=== PATIENT | male | born 1965 | race Caucasian/White ===

== ENCOUNTER 2017-10-18 12:22 | Inpatient (IN) | payer BC ==
[~2017-10-18] VITALS: Ht 167.6 cm; Wt 75.1 kg
--- NOTE | ~2017-10-18 | 2DMMODE ---
[facility] [address] [place] [address] 2 D/M-MODE ECHOCARDIOGRAM Name: SRINIVAS BRINK Room #: 357-P ADM IN M.R.#: [id number] Admission: 10/18/17 Attend Phys: Richmond Hilario, Discharge: Date of : 61 Date of Service: 10/18/17 1603 Report #: [id number] THIS REPORT FOR: //name// APPROVED REPORT Study performed: 10/18/2017 15:05:57 EXAM: Comprehensive 2D, Doppler, and color-flow Echocardiogram Patient Location: ER Room #: 10 Status: routine BSA: 1.84 HR: 80 bpm BP: 126/87 mmHg Other Information Study Quality: Adequate Indications CVA/TIA Echo Enhancing Agent Indication: Rule out Shunt Agent(s) / Amount(s) Used: Agitated Saline 7 cc 2D Dimensions RVDd: 27.77 mm LVEF(%): 59.45 (>50%) IVSd: 7.74 (7-11mm) LVOT Diam: 20.94 (18-24mm) LVDd: 47.15 mm PWd: 7.74 (7-11mm) Ascending Ao: 29.01 (22-36mm) LVDs: 32.28 (25-40mm) Aortic Root: 29.59 mm IVC: 17.00 mm Stephens's LVEF: 59.45 % Volumes Left Atrial Volume (Systole) Single Plane 4CH: 66.59 mL Single Plane 2CH: 46.70 mL LA ESV Index: 33.00 mL/m2 Aortic Valve AoV Peak Geoffrey.: 1.72 m/s AO Peak Gr.: 11.86 mmHg LVOT Max P.20 mmHg LVOT Max V: 0.89 m/s CHRISTIANO Vmax: 1.79 cm2 [facility] [place] [address] 2 D/M-MODE ECHOCARDIOGRAM Name: SRINIVAS BRINK Room #: 357-P [facility] IN M.R.#: [id number] Admission: 10/18/17 Attend Phys: Richmond Hilario, Discharge: Date of : 61 Date of Service: 10/18/17 1603 Report #: [id number] Mitral Valve E/A Ratio: 1.5 MV Decel. Time: 129.30 ms MV E Max Geoffrey.: 1.08 m/s MV A Geoffrey.: 0.73 m/s MV PHT: 37.50 ms IVRT: 96.89 ms Pulmonary Valve PV Peak Geoffrey.: 0.75 m/s PV Peak Gr.: 2.25 mmHg Pulmonary Vein P Vein S: 0.35 m/s P Vein A: 0.26 m/s P Vein D: 0.29 m/s P Vein A Dur.: 92.3 msec P Vein S/D Ratio: 1.21 Tricuspid Valve TR Peak Geoffrey.: 2.50 m/s TR Peak Gr.: 25.04 mmHg PA Pressure: 30.00 mmHg Left Ventricle The left ventricle is normal size. There is normal left ventricular wall thickness. The left ventricular systolic function is normal. The left ventricular ejection fraction is within the normal range. LVEF is 60-65%. The left ventricular diastolic function is normal. Right Ventricle The right ventricle is normal size. The right ventricular systolic function is normal. Atria The left atrium size is normal. Interatrial septum is intact without evidence of ASD or PFO. The right atrium size is normal. Aortic Valve The aortic valve is normal in structure. Aortic valve is calcified. No aortic regurgitation is present. There is no aortic valvular stenosis. Mitral Valve The mitral valve is normal in structure. There is no mitral valve regurgitation noted. No evidence of mitral valve stenosis. Tricuspid Valve The tricuspid valve is normal in structure. There is trace tricuspid [facility] [address] [place] [address] 2 D/M-MODE ECHOCARDIOGRAM Name: SRINIVAS BRINK Room #: 357-[facility] IN M.R.#: [id number] Admission: 10/18/17 Attend Phys: Richmond Hilario, Discharge: Date of : 61 Date of Service: 10/18/17 1603 Report #: [id number] regurgitation. Estimated PAP 30 mmHg. There is no pulmonary hypertension. Pulmonic Valve The pulmonary valve is normal in structure. There is no pulmonic valvular regurgitation. Great Vessels The aortic root is normal in size. IVC is normal in size and collapses >50% with inspiration. Pericardium There is no pericardial effusion. <Conclusion> The left ventricle is normal size. LVEF is 60-65%. The aortic valve is normal in structure. Aortic valve is calcified. No aortic regurgitation is present. There is no aortic valvular stenosis. The mitral valve is normal in structure. The tricuspid valve is normal in structure. There is trace tricuspid regurgitation. Estimated PAP 30 mmHg. There is no pulmonary hypertension. The pulmonary valve is normal in structure. Interatrial septum is intact without evidence of ASD or PFO. <ELECTRONICALLY SIGNED> By: Tico Stein MD 10/18/17 1603 1603 160 Tico Stein MD /INF
--- NOTE | ~2017-10-18 | EKG ---
[address] [address] ELECTROCARDIOGRAM REPORT Name: SRINIVAS BRINK Room #: 357-P ADM IN M.R.#: [id number] Admission: 10/18/17 Attend Phys: Richmond Hilario MD Discharge: Date of : 61 Report #: [id number] THIS REPORT FOR: //name// [facility] ED Test Date: 2017-10-18 Test Time: 12:57:32 Pat Name: SRINIVAS BRINK Department: Room: 357 Gender: M Yield Analyst: MANUEL : 1965 Requested By: Karrie Mejía Order Number: [id number] MD: Hero Boyle Measurements Intervals [place] Rate: 88 P: 51 [place]: 165 QRS: 79 QRSD: 114 T: 43 QT: 386 QTc: 467 Interpretive Statements Sinus rhythm Incomplete right bundle branch block Borderline low voltage, extremity leads Consider anterior infarct Compared to ECG 06/30/2016 18:40:19 Incomplete right bundle-branch block now present Myocardial infarct finding now present Electronically Signed On 10-18-2017 22:29:00 [employer] by Hero Boyle [email or web address] <ELECTRONICALLY SIGNED> By: Hero Boyle MD 10/18/17 2229 [id number] Hero Boyle MD /EPI
[~2017-10-18 12:22] MED LIST: ASPIR 8181 MG PO; ASPIRIN EC81 M1 PO; BIOTIN1 MG PO; CELEBREX50 MG PO; DICLOFENAC SODI75 M1 PO; FISH OIL 1,0001 EAC5 PO; FISHOIL; LEVAQUIN 500 M500 M9 PO; LEVOTHROID PO; LEVOTHYROXIN0.112 M1 PO; LEVOTHYROXINE 0.15MG PO; LEVOXYL150 MCG PO; MAGNESIUM100 MG PO; MECLIZINE HCL12.5 MG PO; MOBIC7.5 MG PO; MULTIPLE VITAM1 EAC1 PO; MULTIVITAMINS; NAPROSYN500 MG PO; NORCO 5-325 TA1 EACH PO; NORFLEX100 MG PO; PHENERGAN 25 MG25 M1 PO; PROAIR HFA8.5 GM INH; PROTONIX40 M1 PO; SYNTHROID 0.10.1 M1 PG; SYNTHROID 0.10.1 M1 PO; TYLENOL325 MG PO; VALIUM2 MG PO
[2017-10-18 12:30] VITALS: BP 135/94
[2017-10-18 12:47] LABS: POC CREATININE 1.3 mg/dL (0.6-1.3); POC HEMOGLOBIN 16.7 g/dL (14.0-18.0); POC POTASSIUM 3.8 mmol/L (3.5-5.1)
[2017-10-18 12:48] LABS: ABSOLUTE NEUTROPHILS 1.8 thou/uL (1.4-8.2); BASOPHILS 0.6 % (0.0-2.0); EOSINOPHILS 1.5 % (0.0-3.0); HEMATOCRIT 47.3 % (42.0-52.0); HEMOGLOBIN 16.2 gm/dL (14.0-18.0); LYMPHOCYTES 41.1 % (24.0-44.0); MCH 32.2 pg (26.0-34.0); MCHC 34.3 g/dL (28.0-37.0); MCV 94.1 fL (80.0-100.0); MONOCYTES 6.8 % (1.0-8.0); PLATELET COUNT 232 thou/uL (150-400); RBC 5.03 mil/uL (4.50-6.00); RDW 13.5 % (10.5-14.5); WBC 3.6 thou/uL (4.0-11.0)
[2017-10-18 12:57] LABS: ANION GAP 10 mmol/L (7-16); BUN 14 mg/dL (7-18); CALCIUM 8.7 mg/dL (8.5-10.1); CHLORIDE 104 mmol/L (98-107); CO2 29 mmol/L (21-32); CREATININE 0.8 mg/dL (0.7-1.3); GLUCOSE 97 mg/dL (74-106); POTASSIUM 3.9 mmol/L (3.5-5.1); SODIUM 143 mmol/L (136-145)
[2017-10-18 13:02] LABS: APTT 32.2 Seconds (24.5-32.8); PROTIME 9.4 Seconds (9.3-11.4)
[2017-10-18 13:05] LABS: TROPONIN-I < 0.04 ng/mL (<0.06)
[2017-10-18] MEDS ORDERED: MUCINEX600 MG PO (13:09)
[2017-10-18] MEDS ORDERED: CLARITIN10 MG PO (13:10)
[2017-10-18 13:38] LABS: D-DIMER 0.46 ug/mLFEU (0.19-0.50)
[2017-10-18 15:07] LABS: CHOLESTEROL 251 mg/dL (<200); HDL CHOLESTEROL 113 mg/dL (>40); LDL CHOLESTEROL 114 mg/dL (<100); TC:HDL 2.2 Ratio (Not establshd); TRIGLYCERIDE 124 mg/dL (<150); VLDL 25 mg/dL (<40)
[2017-10-18 15:25] VITALS: BP 111/79
[2017-10-18 15:56] VITALS: BP 114/80
[2017-10-18] MEDS ORDERED: AUGMENTIN 875-1 EACH PO (16:42)
[2017-10-18 16:43] VITALS: BP 116/83
[2017-10-18 18:51] VITALS: BP 116/84
[2017-10-19 03:55] VITALS: BP 143/97
[2017-10-19] MEDS ORDERED: ANTIVERT25 MG PO (07:07)
[2017-10-19 07:46] VITALS: BP 136/95
[2017-10-19 11:48] VITALS: BP 144/98
[2017-10-19] MEDS ORDERED: PLAVIX 75 MG TA75 M1 PO (14:30)
[2017-10-19] MEDS ORDERED: LIPITOR 20 MG T20 M1 PO (14:39)
[2017-10-19 14:41] VITALS: BP 144/98
== END 2017-10-19 16:01 | disposition home or self-care (01) | DRG 69 ==
LOC: ER 12:22 → EROBS 14:09 → 3W 14:09
PROVIDERS: Emergency Medicine; Psychiatry & Neurology Neurology
DX: G45.9 Transient cerebral ischemic attack, unspecified (principal); M06.9 Rheumatoid arthritis, unspecified; E89.0 Postprocedural hypothyroidism; F43.10 Post-traumatic stress disorder, unspecified; H81.09 Meniere's disease, unspecified ear; H91.90 Unspecified hearing loss, unspecified ear; I10 Essential (primary) hypertension; Z90.49 Acquired absence of other specified parts of digestive tract; Z87.81 Personal history of (healed) traumatic fracture; Z88.6 Allergy status to analgesic agent
CPT/HCPCS: 10879

== ENCOUNTER 2018-03-13 07:29 | Emergency (ER) | payer BC ==
[~2018-03-13] VITALS: Ht 167.6 cm; Wt 72.6 kg
--- NOTE | ~2018-03-13 | EKG ---
[place] [address] [facility] [place] [address] ELECTROCARDIOGRAM REPORT Name: SRINIVAS BRINK Room #: PRE M.R.#: [id number] Admission: Attend Phys: Discharge: Date of : 61 Report #: [id number] THIS REPORT FOR: //name// [facility] ED Test Date: 2018-03-13 Test Time: 08:18:20 Pat Name: SRINIVAS BRINK Department: Room: Gender: M Medical Receptionist: deidre : 1965 Requested By: Lauren Stein Order Number: [id number] MD: Avtar Eldridge Measurements Intervals [place] Rate: 73 P: 57 [place]: 172 QRS: 77 QRSD: 106 T: 55 QT: 390 QTc: 430 Interpretive Statements Sinus rhythm Poor R wave progression Compared to ECG 10/18/2017 12:57:32 No significant change was found Electronically Signed On 03-13-2018 8:41:30 CDT by Avtar Eldridge [email or web address] <ELECTRONICALLY SIGNED> By: Avtar Eldridge MD, [facility] 03/13/18 0841 [id number] 0818 Avtar Eldridge MD, [facility] /EPI
[~2018-03-13 07:29] MED LIST changes: +ANTIVERT25 MG PO; +AUGMENTIN 875-1 EACH PO; +CLARITIN10 MG PO; +LIPITOR 20 MG T20 M1 PO; +MUCINEX600 MG PO; +PLAVIX 75 MG TA75 M1 PO
[2018-03-13 07:52] LABS: ABSOLUTE NEUTROPHILS 1.9 thou/uL (1.4-8.2); BASOPHILS 0.9 % (0.0-2.0); EOSINOPHILS 2.6 % (0.0-3.0); HEMATOCRIT 45.6 % (42.0-52.0); LYMPHOCYTES 29.7 % (24.0-44.0); MCH 32.3 pg (26.0-34.0); MCHC 33.3 g/dL (28.0-37.0); MONOCYTES 11.9 % (1.0-8.0); POLYS 54.9 % (36.0-66.0); RDW 13.5 % (10.5-14.5); WBC 3.4 thou/uL (4.0-11.0)
[2018-03-13 07:54] LABS: HEMOGLOBIN 15.2 gm/dL (14.0-18.0); PLATELET COUNT 192 thou/uL (150-400)
[2018-03-13 08:01] LABS: CALCIUM 8.6 mg/dL (8.5-10.1); CREATININE 0.6 mg/dL (0.7-1.3); POTASSIUM 3.6 mmol/L (3.5-5.1)
[2018-03-13] MEDS ORDERED: SYNTHROID125 MC1 PO (08:35)
[2018-03-13] MEDS ORDERED: VOLTAREN GEL 1100 G2 TOP (08:35)
[2018-03-13 08:55] LABS: ALBUMIN 3.7 g/dL (3.4-5.0); DIRECT BILIRUBIN < 0.1 mg/dL (<0.1-0.3); SGOT 55 U/L (15-37); SGPT 45 U/L (30-65); TOTAL BILIRUBIN 0.2 mg/dL (<0.1-1.0); TOTAL PROTEIN 6.9 g/dL (6.4-8.2)
[2018-03-13 09:01] LABS: AMP/METHAMP Negative (Negative); BARBITURATES Negative (Negative); BENZODIAZEPINES Negative (Negative); COCAINE Negative (Negative); METHADONE Negative (Negative); OPIATES Negative (Negative); PCP Negative (Negative)
== END 2018-03-13 09:48 | disposition home or self-care (01) ==
LOC: ER 07:29
PROVIDERS: Emergency Medicine
DX: F10.129 Alcohol abuse with intoxication, unspecified (principal); M19.90 Unspecified osteoarthritis, unspecified site; G47.30 Sleep apnea, unspecified; Z90.49 Acquired absence of other specified parts of digestive tract; E89.0 Postprocedural hypothyroidism; Z87.891 Personal history of nicotine dependence

== ENCOUNTER 2018-10-14 14:40 | Emergency (ER) | payer BC ==
[~2018-10-14] VITALS: Ht 167.6 cm; Wt 77.1 kg
[~2018-10-14 14:40] MED LIST changes: +SYNTHROID125 MC1 PO; +VOLTAREN GEL 1100 G2 TOP
[2018-10-14 15:14] LABS: ANION GAP 7 mmol/L (7-16); BUN 16 mg/dL (7-18); CALCIUM 8.9 mg/dL (8.5-10.1); CHLORIDE 105 mmol/L (98-107); CO2 32 mmol/L (21-32); CREATININE 0.8 mg/dL (0.7-1.3); GLUCOSE 100 mg/dL (74-106); HEMOGLOBIN 16.4 gm/dL (14.0-18.0); MCH 31.9 pg (26.0-34.0); MCHC 33.4 g/dL (28.0-37.0); MCV 95.4 fL (80.0-100.0); POTASSIUM 4.2 mmol/L (3.5-5.1); RBC 5.14 mil/uL (4.50-6.00); SODIUM 144 mmol/L (136-145); WBC 5.4 thou/uL (4.0-11.0)
[2018-10-14 15:22] LABS: APTT 29.2 Seconds (24.5-32.8); PROTIME 9.6 Seconds (9.3-11.4)
[2018-10-14 15:23] LABS: TROPONIN-I <0.06 ng/mL (<0.06)
--- NOTE | 2018-10-14 16:50 | EKG ---
[facility] [place] [address] ELECTROCARDIOGRAM REPORT Name: SRINIVAS BRINK Room #: [facility] [id number] Admission: 10/14/18 Attend Phys: Discharge: Date of : 61 Report #: [id number] THIS REPORT FOR: //name// [facility] ED Test Date: 2018-10-14 Test Time: 15:25:02 Pat Name: SRINIVAS BRINK Department: Room: Gender: Oracle Etl Developer: MAGALI : 1965 Requested By: Sundar Hicks Order Number: [id number] MD: Avtar Eldridge Measurements Intervals [place] Rate: 86 P: 53 [place]: 170 QRS: 98 QRSD: 108 T: 58 QT: 371 QTc: 444 Interpretive Statements Sinus rhythm RSR' in V1 or V2, right VCD Poor R wave progression Compared to ECG 03/13/2018 08:18:20 No significant change was found Electronically Signed On 10-14-2018 16:50:02 BOXING INSTRUCTOR by Avtar Eldridge [email or web address] <ELECTRONICALLY SIGNED> By: Avtar Eldridge MD, [facility] 10/14/18 1650 152 Avtar Eldridge MD, [facility] /EPI
[2018-10-14 19:12] VITALS: BP 133/70
== END 2018-10-14 19:13 | disposition home or self-care (01) ==
LOC: ER 14:40
PROVIDERS: Emergency Medicine
DX: R51 Headache (principal); R07.89 Other chest pain; E03.9 Hypothyroidism, unspecified; G47.30 Sleep apnea, unspecified; M06.9 Rheumatoid arthritis, unspecified; Z90.89 Acquired absence of other organs; Z86.73 Personal history of transient ischemic attack (TIA), and cerebral infarction without residual deficits; Z87.891 Personal history of nicotine dependence; Z88.6 Allergy status to analgesic agent; Z90.49 Acquired absence of other specified parts of digestive tract

== ENCOUNTER 2020-05-01 22:12 | Inpatient (IN) | payer BC ==
[~2020-05-01] VITALS: Ht 167.6 cm; Wt 87.3 kg
--- NOTE | ~2020-05-01 | EEG ---
[facility] [place] [address] ELECTROENCEPHALOGRAM Name: SRINIVAS BRINK Room #: 452-P ADM IN M.R.#: [id number] Admission: 05/02/20 Attend Phys: Regina Cid MD Discharge: Date of : 61 Report #: [id number] THIS REPORT FOR: //name// CC: FAM physician/PCP Regina Cid DATE OF SERVICE: 05/02/2020 This patient is being evaluated for seizure. EEG was done by placing the electrode by standard 10-20 system of electrode placement. Both referential and sequential montages were used for recording. Background activity in this patient's EEG is about 8 Hz and 30 microvolt. The patient went to sleep that is associated with bilateral slowing. Photic stimulation is unremarkable. Throughout the record, no active epileptiform activity was noticed. IMPRESSION: This patient's EEG does not show any active epileptiform activity. Thank you very much for this referral. By: 1736 [id number] Maciel Tsang MD /nt
--- NOTE | ~2020-05-01 | HC ---
[facility] [place] [address] CONSULTATION Name: SRINIVAS BRINK Room #: 452-P ADM IN M.R.#: [id number] Admission: 05/02/20 Attend Phys: Regina Cid MD Discharge: Date of : 61 Report #: [id number] THIS REPORT FOR: cc: ROBINA - Yaneli family physician/PCP ROBINA - No family physician/PCP Maciel Tsang MD ~ CC: [facility] physician/PCP Regina Cid DATE OF SERVICE: 05/02/2020 HISTORY OF PRESENT ILLNESS: This is a 54-year-old male patient who was seen by me for seizure. The patient indicates that he was walking, he felt dizzy, which is not unusual because he has been diagnosed with Meniere's disease. Then, he tried to lean towards the wall. His came in and she was able to help him to the ground. He still had shakiness. He said he bit his tongue. He was confused after that, but his confusion has resolved. He did have diarrhea associated with it. REVIEW OF SYSTEMS: Indicate that he feels dizzy intermittently. He has been diagnosed with Meniere's disease. He has been told to cut down his sodium. He does it some time, but some time he takes extra sodium. He had diarrhea at this time. He has a history of hypothyroidism and his TSH is still low. He has something to do with his carotid sinus. He has a history of sleep apnea, carpal tunnel syndrome, rheumatoid arthritis, exposure to some chemicals, tinnitus. He also had some fractures in the spine. He has MRI dating back to 2013. He does not know why they were done. He was seen by Dr. Isabel who indicated that the patient probably had TIA. In 2013, he also had MRA of the head and neck and they were unremarkable. This was his relevant 14-point review of system. PAST MEDICAL HISTORY: Positive for Meniere's disease. He says he never had a seizure before. FAMILY HISTORY: Unremarkable. SOCIAL HISTORY: He tells me he does not drink any alcohol, but records indicate that he has told he has. In 2018, he was started on Plavix by Dr. Isabel and he is still on Plavix. PHYSICAL EXAMINATION: GENERAL: Indicates he is alert, responsive, oriented. It takes him a little while to tell me the date and he did not get it exactly right, but he knows what hospital he is in. He knows who the president is. NEUROLOGIC: Cranial nerve examination 2-12 looks unremarkable. Neuromuscular examination as checked for strength, sensation, reflexes and tone looks unremarkable. He does not appear to have cerebellar sign. I could not look at [facility] [address] [place] [address] CONSULTATION Name: SRINIVAS BRINK Room #: 452-P [facility] IN M.R.#: [id number] Admission: 05/02/20 Attend Phys: Regina Cid MD Discharge: Date of : 61 Report #: [id number] the patient's fundus. There is no meningeal sign. There is no carotid bruit. He is a pretty well-developed individual. He does not have any dysmorphic features of eyes, ears and face. VITAL SIGNS: His blood pressure is 143/96, respiration is 17, pulse is 82, temperature is 98.9. His pulses are nicely palpable. SKIN: He has no edema, cyanosis or jaundice. CARDIAC: His cardiac examination is unremarkable. He does not have any respiratory difficulty. His previous records were reviewed and CT was reviewed. IMPRESSION: Clinically, it does look like he has a seizure. He has multiple abnormalities, I am not sure how is it related to that. He tells me he does not drink alcohol, but his platelet count is low and his MCV is high, but it looks like he has given a different history to other people. 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 PLAN: I discussed the situation with him and I told him that we will repeat an MRI of the brain and this time we will do it with and without contrast. I discussed the potential side effect of contrast with the patient. This includes irreversible dermatological side effects. His BUN and creatinine is normal and he wants to proceed it and we will do that. I will get an EEG done. He has so many episodes over a period of time that I might be inclined to give him a trial with Lamictal. Thank you very much for this referral. We will follow the patient along with you. I discussed all of it with the patient and advantages and disadvantages and he wants to follow this plan. By: [id number] Maciel Tsang MD /nt
[2020-05-01 22:12] VITALS: BP 155/106
[2020-05-01 23:04] LABS: ABSOLUTE NEUTROPHILS 2.8 thou/uL (1.4-8.2); BASOPHILS 0.6 % (0.0-2.0); EOSINOPHILS 0.6 % (0.0-3.0); HEMATOCRIT 44.4 % (42.0-52.0); HEMOGLOBIN 14.8 gm/dL (14.0-18.0); LYMPHOCYTES 20.7 % (24.0-44.0); MCH 33.8 pg (26.0-34.0); MCHC 33.4 g/dL (28.0-37.0); MCV 101.3 fL (80.0-100.0); MONOCYTES 11.3 % (1.0-8.0); PLATELET COUNT 135 thou/uL (150-400); POLYS 66.8 % (36.0-66.0); RBC 4.38 mil/uL (4.50-6.00); RDW 14.4 % (10.5-14.5); WBC 4.2 thou/uL (4.0-11.0)
[2020-05-01 23:12] LABS: CALCIUM 8.6 mg/dL (8.5-10.1); MAGNESIUM 1.6 mg/dL (1.8-2.4); POTASSIUM 3.1 mmol/L (3.5-5.1)
[2020-05-01 23:45] LABS: URINE BILIRUBIN NEGATIVE (Negative); URINE BLOOD 3+ (Negative); URINE CLARITY CLEAR; URINE COLOR YELLOW; URINE GLUCOSE-RANDOM* NEGATIVE (Negative); URINE KETONES 1+ (Negative); URINE LEUKOCYTES-REFLEX NEGATIVE (Negative); URINE NITRITE-REFLEX NEGATIVE (Negative); URINE PROTEIN (DIPSTICK) 3+ (Negative); URINE SPECIFIC GRAVITY >= 1.030 (1.005-1.035); URINE UROBILINOGEN 0.2 E.U./dl (0.2-1.0)
[2020-05-01 23:54] LABS: AMP/METHAMP Negative (Negative); BARBITURATES Negative (Negative); BENZODIAZEPINES Negative (Negative); COCAINE Negative (Negative); METHADONE Negative (Negative); OPIATES Negative (Negative); PCP Negative (Negative)
[2020-05-02 00:20] LABS: BACTERIA-REFLEX None Seen /HPF (None Seen); CRYSTALS None Seen /LPF (None Seen); HYALINE CASTS 0-3 Few /LPF (None Seen); MUCUS 0-3 Light strn/LPF (None Seen); SQUAMOUS 0-3 Few /LPF (0-3); URINE RBC 3-10 Few /HPF (0-2); URINE WBC-REFLEX 0-5 Rare /HPF (0-5)
[2020-05-02 01:36] VITALS: BP 139/92
[2020-05-02 01:42] VITALS: BP 137/91
[2020-05-02 02:00] VITALS: BP 126/86
--- NOTE | 2020-05-02 03:20 | NUR ---
PATIENT ARRIVED ALERT AND ORIENTED X4 WITH SOME STRUGGLE AT TIMES FOR WORDS AND CONTEXT. DENIES PAIN EXCEPT AT IV SITE. STATED THAT AT HOME HE USES A CANE HE SUFFERS FROM VERTIGO. NO SKIN BREAKDOWN. CAME FROM ED VIA CART WITH RN. BED RAILS PADDED DUE TO SEIZURE PRECAUTIONS. PATIENT ORIENTED TO ROOM. STATED HE HAS HAD DIARRHEA SEVERAL TIMES YESTERDAY, HOWEVER, NONE AT TIME OF NOTE. DENIES N/V AT THIS TIME. IVF INFUSING. WILL MONITOR.
[2020-05-02 07:53] VITALS: BP 143/96
--- NOTE | 2020-05-02 08:06 | EKG ---
[facility] [place] [address] ELECTROCARDIOGRAM REPORT Name: SRINIVAS BRINK Room #: 452- ADM IN M.R.#: [id number] Admission: 05/02/20 Attend Phys: Regina Cid MD Discharge: Date of : 61 Report #: [id number] THIS REPORT FOR: cc: ROBINA - Yaneli family physician/PCP ROBINA - Yaneli family physician/PCP Avtar Eldridge MD [facility] THIS REPORT FOR: //name// [facility] ED Test Date: 2020-05-01 Test Time: 22:23:52 Pat Name: SRINIVAS BRINK Department: Room: [facility] Gender: M Aircraft Metalsmith: lala : 1965 Requested By: Jonathan Gutiérrez Order Number: [id number] MD: Avtar Eldridge Measurements Intervals [place] Rate: 104 P: 50 [place]: 173 QRS: 108 QRSD: 106 T: 21 QT: 373 QTc: 491 Interpretive Statements Sinus tachycardia RSR' in V1 or V2, right VCD Borderline prolonged QT interval Compared to ECG 10/14/2018 15:25:02 QT interval has lengthened Electronically Signed On 05-02-2020 8:06:38 CDT by Avtar Eldridge [email or web address] <ELECTRONICALLY SIGNED> By: Avtar Eldridge MD, [facility] 05/02/2006 22 22 Avtar Eldridge MD, [facility] /EPI
[2020-05-02 15:04] VITALS: BP 127/88
--- NOTE | 2020-05-02 15:26 | NUR ---
Received awake on bed. Due medications given as prescribed, able to swallow meds w/o difficulty. On room air. Vital signs stable. A+Ox4; on seizure precautions. On heart healthy diet- tolerating well; no nausea, no vomiting and no abdominal pain noted. Continent of bowel and bladder, able to go to the toilet with minimum assist using walker and gait belt. With NS at 100cc/hr, infusing well at L FA. No complaints of pain made during assessment. Assisted in ADLs. Pt seen and examined by Dr Tsang, with orders for MRI- checklist accomplished and faxed; requested for medical records from [facility] faxed request for information form, a/w for [facility] to fax back documents; able to go down for MRI via wheelchair; transferred back to room safely. To continue monitoring patient.
--- NOTE | 2020-05-02 16:24 | NUR ---
PT ADMITTED RELATED TO NEW ONSET SIZURE, HYPOKALEMIA, HYPOMAGNESEMIA. CM REVIEWED CHART AND SPOKE WITH CARE TEAM. CARE TEAM INDICATED NEURO WAS CONSULTED PT TO HAVE MRI AND EEG THIS DAY. CM NOTIFIED BY UR NURSE THAT PT'S INSURANCE IS OON WITH OUR FACILITY. GAVE AUTH THROUGH TOMORROW IF CONTINUED HOSPITALIZATION NEEDED WE NEED TO ATTEMPT TO TRANSFER PT. NURSE ASSISTED CM IN SPEAKING WITH PT OVER THE PHONE THIS AFTERNOON. HE INDICATED HE LIVES IN A RANCH STYLE HOUSE WITH HIS WITH 5 STEPS TO ENTER AND NONE HE USES INSIDE. PT INDICATED HE HAS A FWW AND LOTS OF CANES TO ASSIST WITH MOBILITY. PT INDICATED HE COULDN'T RECALL HIS PCP. HE INICATED NO H HX. CM NOTIFIED HIM OF POSSIBLITY OF TRANSFER. CM SPOKE WITH PT'S JAY AND SHE CONFIRMED THE ABOVE. SHE IS ALSO AWAE OF POSSIBLE NEED FOR FOR TRANSFER. CM TO FOLLOW INDICATED WITH DC PLANNING.
[2020-05-02 19:18] VITALS: BP 141/94
[2020-05-03] VITALS (8 sets, daily range): BP systolic 106–154; BP diastolic 65–92
--- NOTE | 2020-05-03 00:20 | NUR ---
ASSUMED CARE OF PT AT 1900. PT IS A/O X4. UP WITH ASSISTANCE TO THE BR WITH A WALKER AND GAITBELT. DENIES ANY C/O PAIN OR DISCOMFORT. VSS. FALL PRECAUTIONS ARE IN PLACE, CALL LIGHT IS WITHIN REACH. SR ON THE MONITOR. ST WITH AMBULATING OR ANY EXERTION. WILL CONTINUE TO MONITOR.
[2020-05-03 05:58] LABS: HEMATOCRIT 41.1 % (42.0-52.0); HEMOGLOBIN 13.9 gm/dL (14.0-18.0); MCH 34.1 pg (26.0-34.0); MCHC 33.9 g/dL (28.0-37.0); MCV 100.7 fL (80.0-100.0); RBC 4.08 mil/uL (4.50-6.00); RDW 14.1 % (10.5-14.5); WBC 5.8 thou/uL (4.0-11.0)
[2020-05-03 06:47] LABS: CALCIUM 7.7 mg/dL (8.5-10.1); CREATININE 0.8 mg/dL (0.7-1.3); MAGNESIUM 1.6 mg/dL (1.8-2.4); POTASSIUM 3.9 mmol/L (3.5-5.1)
--- NOTE | 2020-05-03 07:55 | EKG ---
[facility] [place] [address] ELECTROCARDIOGRAM REPORT Name: SRINIVAS BRINK Room #: 452- ADM IN M.R.#: [id number] Admission: 05/02/20 Attend Phys: Regina Cid MD Discharge: Date of : 61 Report #: [id number] THIS REPORT FOR: cc: ROBINA - Yaneli family physician/PCP ROBINA - Yaneli family physician/PCP Avtar Eldridge MD [facility] THIS REPORT FOR: //name// [facility] Test Date: 2020-05-03 Test Time: 07:30:27 Pat Name: SRINIVAS BRINK Department: Room: 452 Gender: M Jacquard Plate Maker: MURRAY : 1965 Requested By: Amando Keating Order Number: [id number] MD: Avtar Eldridge Measurements Intervals [place] Rate: 126 P: 49 [place]: 86 QRS: 107 QRSD: 91 T: 12 QT: 319 QTc: 462 Interpretive Statements Sinus tachycardia Anterior infarct, old Baseline wander in lead(s) V2 Compared to ECG 05/01/2020 22:23:52 Anterior Q waves are now present Electronically Signed On 05-03-2020 7:55:21 CDT by Avtar Eldridge [email or web address] <ELECTRONICALLY SIGNED> By: Avtar Eldridge MD, [facility] 05/03/20 0755 9 9 Avtar Eldridge MD, [facility] /EPI
--- NOTE | 2020-05-03 10:13 | NUR ---
Received patient on bed this AM, combative, hallucinating, and having withdrawal symptoms; as per shift mechanic nurse- pt currently on [facility] protocol, one time lorazepam already given but pt remains agitated and combative, tried to address to housekeeper/custodian/laundry worker and night OLD COIN DEALER for further orders but said to wait for 7:30am to inform the hospitalist and obtain for other orders. Pt trying to hit the staff, pulled out his IV. Tried to call housekeeper/custodian/laundry worker to inform re: Tachycardic episodes as well as high as 150-160's; order for lorazepam and 12LEKG obtained. Re-sited IV at L foot- Lorazepam given as prescribed. Dr Keating pagesally and informed re: patient. supervisor testing Shelley called unit: to transfer to RM 207 now while Ativan was just recently given. Pt transferred out of the unit via bed with his personal belongings.
--- NOTE | 2020-05-03 19:41 | NUR ---
ASSUMED CARE AT CHANGE OF SHIFT TRANSFER FROM [facility] WITH A CIWA >20. DR HERNÁNDEZ NOTIFIED WITH ORDERS FOR BILATERAL RESTRAINTS AND BAUTISTA PLACMENT. DR HERNÁNDEZ SPOKE WITH . PATIENT ALERT, AGITATED, RESTLESS, PULLING AT ANYTHING IN REACH, LORAZAPAM GIVEN HOURLY, NOTIFIED DR HERNÁNDEZ THAT PATIENT REMAINS WITH CIWA >15. PT TO TRANSFER TO ICU. FALL PRECAUTIONS C HOURLY ROUNDING, CIWA, AND BILATERAL RESTRAINT CHECKS.
[2020-05-04] VITALS (24 sets, daily range): BP systolic 90–124; BP diastolic 52–84
--- NOTE | 2020-05-04 03:05 | NUR ---
PT TRANSFERED FROM TO ICU ROOM 244 AT 2115 DUE TO ETOH WITHDRAWAL. PT WAS VERY CONFUSED, AGITATED, AND COMBATIVE AFTER TRANSFER. CIWA SCORE >25. LORAZEPAM GIVEN. PT APPEARED TO BE HAVING HALLUCINATIONS HE WOULD TRY TO PUNCH HIS FISTS IN THE AIR AND MOUTH WORDS. BILATERAL WRIST RESTRAINTS IN PLACE. PRECEDEX GTT STARTED. PT THEN BECAME LESS AGITATED AND RESTLESSNES IMPROVED. 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 AROUND MIDNIGHT, O2 SATS DROPPED BELOW 90% ON 3L NC. NOITIFIED RT. PT WAS PLACED ON 50% VENTIMASK AND 3-4L NC. AROUND 0200, PT BECAME MORE TACHYPENIC WITH RR 30S-40S. O2 SATS DROPPED TO MID 80S. LUNG SOUNDS COARSE WITH WHEEZES IN ALL MIRANDA. NOTIFIED DEGREE CLERK SUPERVISOR SHIPFITTERS FOR HOSPITALIST. ORDER RECEIVED FOR BREATHING TREATMENTS AND STAT CXRAY. RT ADMINISTERED BREATHING TX. WAITING ON CXRAY RESULTS. O2 SATS AND RR IMPROVED AFTER BREATHING TX. FALL PRECAUTIONS IN PLACE. NOT PROGRESSING WELL TOWARD POC GOALS. WILL CONTINUE TO MONITOR CLOSELY.
[2020-05-04 04:59] LABS: BE(vivo) -5.3 mmol/L (-2 to +3); HCO3 20.4 mmol/L (22.0-26.0); PCO2 40.6 mmHg (35.0-45.0); PO2 82.3 mmHg (80.0-100.0); sO2 95.3 % (92.0-98.0)
[2020-05-04 05:00] LABS: pH 7.319 (7.360-7.450)
[2020-05-04 05:26] LABS: ALBUMIN 3.1 g/dL (3.4-5.0); CALCIUM 7.6 mg/dL (8.5-10.1); CREATININE 0.7 mg/dL (0.7-1.3); MAGNESIUM 1.8 mg/dL (1.8-2.4); POTASSIUM 3.9 mmol/L (3.5-5.1); TOTAL BILIRUBIN 0.8 mg/dL (0.2-1.0); TOTAL PROTEIN 6.4 g/dL (6.4-8.2)
--- NOTE | 2020-05-04 05:47 | NUR ---
0445 - RR 40S-50S. LUNGS VERY COARSE. NOTIFIED KAYKAY ZENG NP. ABG ORDERED. 40MG LASIX GIVEN X1. IVF STOPPED. PULMONARY CONSULTED. INCREASED PRECEDEX GTT TO HELP WITH RESTLESSNESS. 0545 - RR NOW 20S-30S. 99-100% SPO2 ON VENTIMASK 50% AND 4L NC. RESTING CALMLY. MESSAGE LEFT FOR DR BEDOYA TO CALL BACK.
[2020-05-04 06:06] LABS: HEMATOCRIT 42.6 % (42.0-52.0); HEMOGLOBIN 14.2 gm/dL (14.0-18.0); MCH 34.1 pg (26.0-34.0); MCHC 33.3 g/dL (28.0-37.0); MCV 102.3 fL (80.0-100.0); RBC 4.16 mil/uL (4.50-6.00); RDW 13.9 % (10.5-14.5)
--- NOTE | 2020-05-04 10:10 | NUR ---
Patient out of network with [facility]. Options for transfer are [facility], [facility], [facility] and [facility]. Dicussed transfer yesterday with phys. Patient not stable to transfer. Patient in ETOH withdraw. Patient transferred to ICU from CCU. Family at bedside.
--- NOTE | 2020-05-04 10:55 | NUR ---
ASSUMED CARE AT 0700, ASSESSMENT AND VITAL SIGNS COMPLETED PER ICU PROTOCOL. DR. HERNÁNDEZ ROUNDED THIS AM, PLAN OF CARE DISCUSSED. PT'S CALLED RN FOR UPDATE. RN PROVIDED UPDATE AND DISCUSSED PLAN OF CARE. RN WILL CONTINUE TO MONITOR.
--- NOTE | 2020-05-04 20:51 | NUR ---
2024 - RN SPOKE WITH PATIENT'S , JAY; UPDATED ON PT CONDITION. ALL QUESTIONS ANSWERED.
[2020-05-05] VITALS (21 sets, daily range): BP systolic 92–159; BP diastolic 54–101
--- NOTE | 2020-05-05 03:19 | NUR ---
ASSUMED PT CARE AROUND 1900. PT HAS RESTED CALMLY DURING THE NIGHT. REMAINS ON PRECEDEX GTT; RATE TITRATED DOWN SLIGHTLY PT IS ARROUSABLE, ABLE TO FOLLOW SIMPLE COMMANDS, AND MOSTLY COOPERATIVE. HE DOES NOT APPEAR TO BE HAVING ANY HALLUCINATIONS. DENIES PAIN WHEN ASKED. SPEECH IS STILL MUMBLED, BUT SOME WORDS ARE MORE INTELLIGIBLE AT THIS TIME. O2 SATS HAVE REMAINED 97-100% ALL SHIFT ON 50% VENTIMASK AND 3L NC. RESPIRATIONS EVEN AND UNLABORED. ABUTISTA TO DD. URINE OUTPUT 30-40ML/HR. AFEBRILE. REMAINS IN BILATERAL WRIST RESTRAINTS. FALL PRECAUTIONS IN PLACE. PROGRESSING SLOWLY TOWARD POC GOALS.
--- NOTE | 2020-05-05 04:25 | NUR ---
0415 - PT DROWSY BUT MORE ORIENTED THIS MORNING. PT ASKED WHAT DAY IT IS TODAY. PT WAS ABLE TO HAVE A COHERENT CONVERSATION THIS MORNING; PT STATED HE HAS PTSD FROM BEING IN [employer] AND WORKING A EXCEPTIONAL STUDENT EDUCATION TEACHER. HE RECOUNTED SOME STORIES OF COMING HOME FROM THE [employer]. HE CONTINUES TO PROGRESS TOWARD POC GOALS. WILL CONTINUE TO MONITOR.
--- NOTE | 2020-05-05 06:06 | NUR ---
0515 - PT CONTINUES TO BE COOPERATIVE AND IS BECOMING MORE ORIENTED THIS MORNING. HE HAS USED HIS CALL LIGHT APPROPRIATELY AND IS MAKING HIS NEEDS KNOWN. RESPIRATIONS ARE EVEN AND UNLABORED. NO APNEA NOTED. TAKEN OFF VENTI MASK. PT IS NOW ON 3L NC. O2 SATS >95% ON 3L NC. UPDATED RT. PT AGREES TO NOT PULL AT ANY LINES. HE IS RESPONDING WELL TO COMMANDS. NO IMPULSIVITY NOTED. RESTRAINTS DISCONTINUED AT 0515. WILL GIVE REPORT TO ONCOMING NURSE.
--- NOTE | 2020-05-05 11:00 | NUR ---
garrett notified that pt is stable for transfer to in network hospital. spoke with christopher, would like dr to call rt she has question on hospital [facility]. education on [facility]. " not [facility]"/. cm faxed referral to [facility] and . radiology clouded for images.
[2020-05-05] MEDS ORDERED: ZOSYN 3.373.375 GM/1 IV (13:24)
[2020-05-05] MEDS ORDERED: PRENATAL PO (13:24)
[2020-05-05] MEDS ORDERED: ALBUTEROL2.5 MG/31 INH (13:24)
[2020-05-05] MEDS ORDERED: FOLIC ACID1 MG PO (13:24)
[2020-05-05] MEDS ORDERED: KLOR-CON 1010 MEQ PO (13:24)
[2020-05-05] MEDS ORDERED: VITAMIN B-1100 M2 PO (13:24)
[2020-05-05] MEDS ORDERED: ATIVAN2 MG/1 ML IV PUSH (13:24)
[2020-05-05] MEDS ORDERED: MAG-OXIDE400 MG PO (13:24)
[2020-05-05] MEDS ORDERED: CATAPRES-TTS 20.2 MG TRANSDERM (13:24)
[2020-05-05] MEDS ORDERED: IPRAT-ALBUT 0.5-3 ML INH (13:24)
[2020-05-05] MEDS ORDERED: FAMOTIDINE20 MG/2 M2 IV PUSH (13:24)
--- NOTE | 2020-05-05 15:50 | NUR ---
when pt arrived per admission history, he brought his wallet to the hospital. unable to find his wallet in the pt room, with his belongings or in any of the rooms he was in while in the hospital. called ER, [facility], [facility] and Security, the wallet was not found. pt and aware.
== END 2020-05-05 16:04 | disposition short-term general hospital (02) | DRG 871 ==
LOC: ER 22:12 → EROBS 05-02 00:44 → ICU 05-02 00:44 → 4W 05-02 00:44 → 2N 05-03 08:09 → ICU 05-03 21:25
PROVIDERS: Emergency Medicine; Internal Medicine; Nurse Practitioner Family; ADMIT Internal Medicine; ATTEND Internal Medicine
DX: A41.9 Sepsis, unspecified organism (principal); G92 Toxic encephalopathy; J96.01 Acute respiratory failure with hypoxia; J69.0 Pneumonitis due to inhalation of food and vomit; F10.239 Alcohol dependence with withdrawal, unspecified; R56.9 Unspecified convulsions; E03.9 Hypothyroidism, unspecified; I45.10 Unspecified right bundle-branch block; M06.9 Rheumatoid arthritis, unspecified; E87.6 Hypokalemia; E83.42 Hypomagnesemia; H81.09 Meniere's disease, unspecified ear; G47.33 Obstructive sleep apnea (adult) (pediatric); E66.01 Morbid (severe) obesity due to excess calories; E87.8 Other disorders of electrolyte and fluid balance, not elsewhere classified; Z88.8 Allergy status to other drugs, medicaments and biological substances; Z90.49 Acquired absence of other specified parts of digestive tract; Z68.31 Body mass index [BMI] 31.0-31.9, adult; Z82.49 Family history of ischemic heart disease and other diseases of the circulatory system; Z79.899 Other long term (current) drug therapy; Z87.891 Personal history of nicotine dependence; Z80.1 Family history of malignant neoplasm of trachea, bronchus and lung; Z98.1 Arthrodesis status; Z03.818 Encounter for observation for suspected exposure to other biological agents ruled out
CPT/HCPCS: 10045; 10078

== ENCOUNTER 2021-09-15 15:14 | Emergency (ER) | payer OTHER ==
[~2021-09-15] VITALS: Ht 167.6 cm; Wt 83.9 kg
[~2021-09-15 15:14] MED LIST changes: +ALBUTEROL2.5 MG/31 INH; +ATIVAN2 MG/1 ML IV PUSH; +CATAPRES-TTS 20.2 MG TRANSDERM; +FAMOTIDINE20 MG/2 M2 IV PUSH; +FOLIC ACID1 MG PO; +IPRAT-ALBUT 0.5-3 ML INH; +KLOR-CON 1010 MEQ PO; +MAG-OXIDE400 MG PO; +PRENATAL PO; +VITAMIN B-1100 M2 PO; +ZOSYN 3.373.375 GM/1 IV
[2021-09-15 15:15] VITALS: BP 124/64
[2021-09-15] MEDS ORDERED: HYDROCODON-ACE1 EAC7 PO (20:11)
== END 2021-09-15 20:46 | disposition left against medical advice (07) ==
LOC: ER 15:14
DX: M25.561 Pain in right knee (principal); M25.551 Pain in right hip; E03.9 Hypothyroidism, unspecified; M06.9 Rheumatoid arthritis, unspecified; Z98.890 Other specified postprocedural states; Z90.49 Acquired absence of other specified parts of digestive tract; Z79.891 Long term (current) use of opiate analgesic; Z79.899 Other long term (current) drug therapy; Z79.1 Long term (current) use of non-steroidal anti-inflammatories (NSAID); Z88.8 Allergy status to other drugs, medicaments and biological substances; Z87.891 Personal history of nicotine dependence; V03.99XA Pedestrian with other conveyance injured in collision with car, pick-up truck or van, unspecified whether traffic or nontraffic accident, initial encounter; Y93.89 Activity, other specified; Y92.89 Other specified places as the place of occurrence of the external cause; Y99.8 Other external cause status